=== PATIENT | female | born 1935 | race Asian ===

== ENCOUNTER 2017-07-31 06:47 | Inpatient (IN) | payer MEDICARE, OTHER ==
[~2017-07-31 06:47] MED LIST: CEFAZOLIN 2 GM/50 ML (PMX) 50 ML IVPB; SOD CHLORIDE 0.9% 1,000 ML IV
[2017-07-31] MEDS ORDERED: EPHEDrine SULFATE 50 MG/5 ML SYG (07:00)
[2017-07-31] MEDS ORDERED: MIDAZOLAM 1 MG/ML 2 ML INJ (09:08)
[2017-07-31] MEDS ORDERED: METOCLOPRAMIDE 10 MG INJ (09:08)
[2017-07-31] MEDS ORDERED: FENTAnyl 50 MCG/ML VIAL ×2 (09:08→09:39)
[2017-07-31] MEDS ORDERED: PROPOFOL 20 ML (09:08)
[2017-07-31] MEDS ORDERED: ONDANSETRON 4 MG INJ (09:08)
[2017-07-31] MEDS ORDERED: CEFAZOLIN 1 GM INJ (09:08)
[2017-07-31] MEDS ORDERED: MEPERIDINE 25 MG INJ IV (09:30)
[2017-07-31] MEDS ORDERED: DIPHENHYDRAMINE 50 MG INJ IV (09:30)
[2017-07-31] MEDS ORDERED: OXYCODONE/ACETAMINOPHEN (5/325) TAB PO (09:30)
[2017-07-31] MEDS ORDERED: hydrALAzine 20 MG INJ IV ×2 (09:30→12:00)
[2017-07-31] MEDS ORDERED: HYDROmorphONE (0.2 MG/ML) 10ML SYG IV ×2 (09:30)
[2017-07-31] MEDS ORDERED: METOCLOPRAMIDE 10 MG INJ IV (09:30)
[2017-07-31] MEDS ORDERED: ONDANSETRON 4 MG INJ IV (11:00)
[2017-07-31] MEDS ORDERED: morphine 2 MG INJ IV (11:00)
[2017-07-31] MEDS ORDERED: ACETAMINOPHEN 1000MG/100ML IV 100 ML IVPB (11:00)
[2017-07-31] MEDS: HYDROmorphONE (0.2 MG/ML) 10ML SYG IV (11:01)
[2017-07-31] MEDS: ONDANSETRON 4 MG INJ IV (11:02)
[2017-07-31] MEDS: LABETALOL HCL 20MG INJ IV (11:24)
[2017-07-31] MEDS: D5W-0.45 NACL + KCL 20 MEQ 1,000 ML IV ×2 (13:45→21:14)
[2017-07-31] MEDS: traMADol 50 MG TAB PO ×2 (16:40→23:57)
[2017-07-31] MEDS: FAMOTIDINE 20 MG TAB PO (21:14)
[2017-08-01 05:14] LABS: ADD MAN DIFF? NO
[2017-08-01 05:20] LABS: BASOPHILS % 0.3 % (0.0-2.0); EOSINOPHILS # 0.6 10^3/ul (0.0-0.5); EOSINOPHILS % 7.9 % (0.0-7.0); HEMOGLOBIN 10.3 g/dl (12.0-16.0); LYMPHOCYTES % 25.5 % (15.0-51.0); MEAN CORPUSCULAR HEMOGLOBIN 32.1 pg (29.0-33.0); MEAN CORPUSCULAR HGB CONC 32.2 g/dl (32.0-37.0); MEAN CORPUSCULAR VOLUME 99.7 fl (82.0-101.0); MEAN PLATELET VOLUME 9.4 fl (7.4-10.4); MONOCYTE # 0.6 10^3/ul (0.3-0.9); MONOCYTES % 7.5 % (0.0-11.0); NEUTROPHIL # 4.5 10^3/ul (1.6-7.5); NEUTROPHILS % 58.5 % (39.0-77.0); PLATELET COUNT 208 10^3/UL (140-415); RED BLOOD COUNT 3.21 10^6/ul (4.20-5.40); RED CELL DISTRIBUTION WIDTH 12.5 % (11.5-14.5)
[2017-08-01 05:20] LABS: WHITE BLOOD COUNT 7.8 10^3/ul (4.8-10.8)
[2017-08-01] MEDS: D5W-0.45 NACL + KCL 20 MEQ 1,000 ML IV (05:52)
[2017-08-01] MEDS: traMADol 50 MG TAB PO ×2 (05:52→12:56)
[2017-08-01 06:09] LABS: ANION GAP 11 (8-16); BLOOD UREA NITROGEN 14 mg/dl (7-20); CALCIUM 8.1 mg/dl (8.4-10.2); CARBON DIOXIDE 27 mmol/L (21-31); CHLORIDE 104 mmol/L (97-110); CREATININE 0.96 mg/dl (0.44-1.00); GLUCOSE 116 mg/dl (70-220); POTASSIUM 5.3 mmol/L (3.5-5.1); SODIUM 137 mmol/L (135-144)
[2017-08-01 07:28] LABS: MAGNESIUM 1.8 mg/dl (1.7-2.5)
[2017-08-01] MEDS ORDERED: GLUCOSAMINE SULFATE 1500 MG PO (09:00)
[2017-08-01] MEDS: LOSARTAN 50 MG TAB PO ×2 (09:00→10:21)
[2017-08-01] MEDS: AMLODIPINE 2.5 MG TAB PO ×2 (09:00)
[2017-08-01] MEDS ORDERED: NON-FORMULARY/PATIENT OWN MED (Fluticasone/Vilanterol (Breo Ellipta 200-25 Mcg INH) 1 PUFF INHALATION (09:00)
[2017-08-01] MEDS: FISH OIL 1,000 MG CAP PO (10:20)
[2017-08-01] MEDS: ASCORBIC ACID 500 MG TAB PO (10:20)
[2017-08-01] MEDS: HYDROCHLOROTHIAZIDE 12.5 MG CAP PO (10:21)
[2017-08-01] MEDS: DOCUSATE SODIUM 100 MG CAP PO (10:21)
[2017-08-01] MEDS: MAGNESIUM HYDROXIDE 30ML CUP PO (10:22)
[2017-08-01] MEDS: FAMOTIDINE 20 MG TAB PO (10:22)
[2017-08-01] MEDS: MONTELUKAST 10 MG TAB PO (10:22)
== END 2017-08-01 14:30 | disposition home or self-care (01) | DRG 580 ==
LOC: REC 06:47 → MS1 12:50
PROC: 0HTU0ZZ Resection of Left Breast, Open Approach (ICD-10-PCS; principal; 2017-07-31 08:30)
PROC: 07B60ZX Excision of Left Axillary Lymphatic, Open Approach, Diagnostic (ICD-10-PCS; 2017-07-31 08:30)
DX: C50.512 Malignant neoplasm of lower-outer quadrant of left female breast (principal); C77.3 Secondary and unspecified malignant neoplasm of axilla and upper limb lymph nodes; C50.312 Malignant neoplasm of lower-inner quadrant of left female breast; I10 Essential (primary) hypertension; Z17.0 Estrogen receptor positive status [ER+]; M19.90 Unspecified osteoarthritis, unspecified site
CPT/HCPCS: 80048; 83735; 85025; 88307